=== PATIENT | female | born 1990 | race Hispanic/Latino ===

== ENCOUNTER 2025-01-03 22:04 | Inpatient (IN) | payer SELFPAY ==
[~2025-01-03] VITALS: Ht 160 cm; Wt 78.0 kg
[2025-01-03] MEDS: LACTATED RINGERS 1000ML 1,000 ML IV ONE (22:34)
[2025-01-03] MEDS: acetaMINOPHEN 500 MG TABLET PO ONE (22:35)
[2025-01-03 22:39] LABS: BASOPHILS # (AUTO) 0.05 K/uL (0.00-0.20); BASOPHILS % (AUTO) 0.3 % (0.0-5.0); EOSINOPHILS # (AUTO) 0.03 K/uL (0.00-0.70); EOSINOPHILS % (AUTO) 0.2 % (0.0-8.0); HEMATOCRIT 41.4 % (36-48); IMMATURE GRANULOCYTE ABSOLUTE 0.16 K/uL (0-1); LYMPHOCYTES # (AUTO) 1.4 K/uL (1.0-4.8); LYMPHOCYTES % (AUTO) 7.3 % (21.0-51.0); MEAN CORPUSCULAR HEMOGLOBIN 28.5 pg (27.0-33.0); MEAN CORPUSCULAR HGB CONC 34.5 g/dL (32.0-36.0); MEAN CORPUSCULAR VOLUME 82.5 fL (79-99); NEUTROPHILS # (AUTO) 16.8 K/uL (1.8-7.7); NEUTROPHILS % (AUTO) 86.4 % (40.0-77.0); PLATELET COUNT (AUTO) 163 K/uL (130-400); RED BLOOD CELL COUNT(AUTO) 5.02 MIL/uL (4.00-5.50); RED CELL DISTRIBUTION WIDTH 12.5 % (11.0-15.5); WHITE BLOOD COUNT (AUTO) 19.4 K/uL (4.8-10.8)
[2025-01-03 22:47] LABS: CREATININE 0.6 mg/dL (0.5-1.0); POTASSIUM 3.6 mmol/L (3.5-5.1)
[2025-01-03 22:52] LABS: INFLUENZA TYPE A Negative For Type A (NEGATIVE); INFLUENZA TYPE B Negative For Type B (NEGATIVE)
[2025-01-03 22:53] LABS: COVID19 (SARS ANTIGEN RAPID) PRESUMPTIVE NEGATIVE (NEGATIVE)
[2025-01-03] MEDS ORDERED: IOHEXOL 350 MG/ML 100ML INFUS..BTL IV ONE (23:04)
[2025-01-03 23:05] LABS: ADD UA MICROSCOPIC YES; APPEARANCE,URINE CLOUDY (CLEAR); BILIRUBIN,URINE NEGATIVE (NEGATIVE); COLOR,URINE LIGHT-YELLOW (YELLOW); GLUCOSE, URINE (UA) >=1000 mg/dL (NEGATIVE); KETONES,URINE 60 mg/dL (NEGATIVE); LEUKOCYTE ESTERASE ,URINE 500 Leu/uL (NEGATIVE); NITRATE,URINE 2+ (NEGATIVE); OCCULT BLOOD,URINE SMALL (NEGATIVE); PH,URINE 6.5 (5.0-8.0); PROTEIN,URINE 20 mg/dL (NEGATIVE); UROBILINOGEN,URINE 0.2 mg/dL (0.2-1.0)
[2025-01-03 23:07] LABS: BACTERIA,URINE FEW /HPF (None Seen); MUCUS,URINE RARE LPF (None Seen); SQUAMOUS EPITHELIAL CELL,UR RARE /HPF (0-2); WBC,URINE TNTC /HPF (0-1); YEAST,URINE BUDDING RARE /HPF (None Seen)
[2025-01-03 23:35] VITALS: TEMP 99.8
--- NOTE | 2025-01-03 23:48 | HMCIMG ---
CT ABDOMEN/PELVIS W/CONTRAST HISTORY: Lower abdominal pain COMPARISON: None TECHNIQUE: Multiple sequential axial images of the abdomen and pelvis were obtained from the dome of the diaphragm through symphysis pubis. Patient was given 100 cc of Omnipaque through intravenous route. Oral contrast was not given. FINDINGS: No pleural effusion is seen bilaterally. There is no evidence of parenchymal disease or pulmonary nodule of the visualized lower lungs. Degenerative changes of the thoracolumbar spine are present. The heart is not enlarged. Liver measures 22 cm. The liver, spleen, adrenal glands and pancreas are unremarkable. There is no evidence of hydronephrosis bilaterally. No evidence of renal stone is seen. Fecal material is seen in the colon. There are normal size retroperitoneal and mesenteric lymph nodes. No ascites is seen. No CT evidence of acute appendicitis is seen. There is right adnexal cystic structure measuring 3 cm may be related to ovarian cyst. Pelvic sidewalls are symmetric bilaterally. Bladder is well distended without wall thickening. IMPRESSION: 1. No acute findings. CT was performed with one or more following dose reduction techniques: automated exposure control, adjustment of the mA and kv according to patient's size, or use of a iterative reconstruction technique.
--- NOTE | 2025-01-03 23:48 | ERN ---
General Chief Complaint: Sepsis Stated Complaint: FEVER, CHILLS, POSSIBLE SEPSIS Time Seen by MD: 22:08 History of Present Illness Initial Comments 34-year-old female, history of diabetes, history of cholecystectomy, presents for lower abdominal pain and fever. She reports that she started with some lower abdominal pain beginning earlier in the day. She developed fever. EMS picked up the patient from home. She was found to have a heart rate in the 130s and a temperature of 102 F. She denies any vaginal bleeding or discharge. No vomiting. No cough or congestion. Allergies: Coded Allergies: No Known Allergies (Unverified Allergy, Unknown, 01/03/25) Past Medical History Past Medical History: Diabetes-Type II Past Surgical History: None ROS Dictation CONSTITUTIONAL: Fever generalized weakness HEAD/FACE: No signs of trauma. EENT: No eye pain, no blurred vision, no tearing, no double vision, no ear pain, no ear discharge, no nose pain, no nasal congestion, no throat pain, no throat swelling, no mouth pain. RESPIRATORY: No cough, no orthopnea, no SOB, no stridor, no wheezing. CARDIOVASCULAR: No chest pain, no edema, no palpitations, no syncope. GASTROINTESTINAL/ABDOMINAL: Lower abdominal pain GENITOURINARY: No abnormal discharge, no dysuria, no frequent urination, no hematuria. No complaints of pain in the genitals. MUSCULOSKELETAL: No back pain, no gout, no joint pain, no joint swelling, no muscle pain, no muscle stiffness, no neck pain. INTEGUMENTARY: No change in color, no change in hair/nails, no dryness, no lesion, no lumps, no rash. NEUROLOGICAL/PSYCH: No anxiety, not depressed, no emotional problem, no headache, no numbness, no pre-existing deficit, no history of seizures, no tremors, no weakness. HEMATOLOGIC/LYMPHATIC: Not anemic, no history of blood clots, no apparent bleeding, no bruising, glands not swollen. All Systems Negative, Except as Noted. Physical Exam Physical Exam Dictation VITAL SIGNS: Reviewed. GENERAL APPEARANCE: Alert, oriented x3, moderate distress HEAD AND FACE: Non-traumatic. EYES: PERRL, pink conjunctivas, eyelid no trauma, anterior chamber clear. EARS: Pinnas intact and no signs of trauma or erythema. Ear canals clear and no discharge. TMs no erythema. NOSE: No discharge, no bleeding. OROPHARYNX: Mouth normal, teeth no caries, tongue pink. Pharynx clear, no erythema. Tonsils no exudates, no abscesses noted. Mucous membrane moist. NECK: Supple, non-tender, no thyromegaly, no masses, no JVD, no bruits. BREAST: Deferred. CHEST: No tenderness, no crepitus, no paradoxical movement, no retractions. LUNGS: Clear, well-ventilated, symmetric, no rales, no wheezing, no rhonchi, no stridor, good breath sounds bilaterally. HEART: Regular rate, regular rhythm, no murmur, no gallops. VASCULAR: No peripheral edema. ABDOMEN: Soft, positive bowel sounds, nondistended, no guarding, no rebound, no masses no hepatomegaly, no splenomegaly, no Porter's sign, no hernias. Lower abdominal tenderness RECTAL: Deferred. GENITAL: Deferred. NEUROLOGICAL: Normal speech, gross motor function intact, gross sensory function intact. MUSCULOSKELETAL: Neck nontender, full range of motion, back nontender, full range of motion. EXTREMITIES: Nontender, full range of motion. SKIN: Color pink, dry, no turgor, no rash, no lacerations, no abrasions, no contusions. LYMPHATICS: Deferred. Results Laboratory and Microbiology Lab and Micro Result [facility]: Lower abdominal pain, fevers Historian: Patient Comorbidities: Uncontrolled diabetes, obesity Limitations by social determinants of health: Uninsured, I did factor this into my decision making. Differential diagnosis: UTI, SIRS, sepsis, surgical pathology, torsion, other. Vital signs: Initially febrile 101.5, pulse 124, blood pressure stable. Vital signs improved in the ER with treatment. Labs (independently ordered and interpreted by me): Leukocytosis 19 K, left shift 86% neutrophils. No anemia. Chemistry shows mild dehydration, stable electrolytes, glucose 320, lactic acid normal, CK, troponin normal. HCG is negative. Urinalysis consistent with infection, elevated specific gravity, glucose, occult blood, 2+ nitrites and leuk esterase too numerous to count WBCs. Flu SARS negative CT abdomen and pelvis with contrast (independently ordered and interpreted by me): No surgical pathology or major abnormalities noted. Pelvis ultrasound (independently interpreted by me): No signs of torsion. Treatment in ED: 2L LR, patient given fluids on ideal body weight, 30 cc/kg. IV Toradol for pain and fever. P.o. Tylenol. IV Rocephin. Patient did trigger sepsis. On sepsis focused re-evaluation after the fluids and antibiotics the patient has stable perfusion, cap refill less than 2 seconds, stable vital signs. Consultation: Hospitalist for admission. ED Course DX & DISP Disposition: Inpatient Departure Impression: Primary Impression: Sepsis Additional Impressions: UTI (urinary tract infection), Dehydration, Hyperglycemia Critical Time: 30 minutes (Critical Care Procedure NoteAuthorized and Performed by: meTotal critical care time: Approximately 36 minutesDue to a high probability of clinically significant, life threatening deterioration, the patient required my highest level of preparedness to intervene emergently and I personally spent this critical care time directly and personally managing the patient. This critical care time included obtaining a history; examining the patient; pulse oximetry; ordering and review of studies; arranging urgent treatment with development of a management plan; evaluation of patient's response to treatment; frequent reassessment; and, discussions with other providers.This critical care time was performed to assess and manage the high probability of imminent, life-threatening deterioration that could result in multi-organ failure. It was exclusive of separately billable procedures and treating other patients and teaching time.Please see MDM section and the rest of the note for further information on patient assessment and treatment.) Condition: Stable Referrals: SELF,REFERRAL (PCP) OWEN PENA DO Jan 03, 2025 23:48
[2025-01-04] VITALS (7 sets, daily range): BP systolic 98–121; BP diastolic 52–72; PULSE 61–116; RESP 18–19; TEMP 97.8–98.4; O2SAT 99
[2025-01-04] MEDS: cefTRIAXone 1G VIAL IVPB ONE (00:03)
[2025-01-04] MEDS: ketOROlac 15MG/ML VIAL (15MG/ML) IV ONE (00:03)
[2025-01-04] MEDS: LACTATED RINGERS 1000ML 1,000 ML IV ONE (00:03)
--- NOTE | 2025-01-04 01:08 | NUR ---
REPORT GIVEN TO TELMA MARTINEZ ALL QUESTIONS ANSWERED AT THIS TIME. NURSE EXPECTING PT ARRIVAL TO THE UNIT
--- NOTE | 2025-01-04 01:20 | HP ---
[facility] HISTORY AND PHYSICAL Date of Service: Jan 04, 2025 Time of Service: 01:20 Attending/supervising physicians: Dr. Tapia and Dr. Weber HISTORY OF PRESENT ILLNESS: Ms. New is a 34-year-old female, history of diabetes who presented to [facility] ED vi a EMS for evaluation of lower abdominal pain and fever onset 01/03/2025. EMS reported that the patient was found to have a heart rate in the 130s and a temperature of 102 F. the patient denied any vaginal bleeding or discharge, vomiting, cough, congestion. ED provider reports that patient triggered sepsis alert with a fever 101.5 F, heart rate 124 bpm, WBCs 19.4. UA was positive for leuk EST and nitrites. In ED the patient received Tylenol, LR2 L bolus, [id number] mg IV, and Rocephin1 g. ED physician request patient be admitted with the diagnosis of sepsis, UTI, dehydration, hyperglycemia. I assessed the patient at bedside in the ED 9. The patient was crying, appeared in no distress breathing was even, unlabored, in no distress. Patient reports she was crying because she has had sepsis in the past and is afraid. I informed the patient of labs, diagnostics, and plan of care. She verbalized understanding and is in agreement with the plan. Plan and assessment are listed below. REVIEW OF SYSTEMS 12-point ROS reviewed with patient. All pertinent positives mentioned above. Otherwise negative, noncontributory, non-pertinent. PAST MEDICAL HISTORY: As mentioned above PAST SURGICAL HISTORY: Cholecystectomy PAST SOCIAL HISTORY: Patient denies alcohol, tobacco, illicit drug use FAMILY HISTORY: Noncontributory Coded Allergies: No Known Allergies (Unverified Allergy, Unknown, 01/03/25) PHYSICAL EXAM GENERAL APPEARANCE: The patient is awake, alert, and oriented, in no acute cardiopulmonary distress. NEUROLOGICAL: Cranial nerves II-XII grossly intact. Motor is 5/5 in bilateral upper and lower extremities proximal to distal. No sensory deficits. HEENT: Face is symmetric. Pupils are equal and reactive. Extraocular movements are intact. NECK: Supple. No JVD. No thyromegaly. No submental, submandibular, pre- /postauricular, occipital or supraclavicular lymphadenopathy. CHEST: Normal chest expansion. No Telemetry. LUNGS: Absence of any rales, rhonchi or any wheezing. CARDIOVASCULAR: Regular. S1 and S2 normal. No appreciable rubs, murmurs or gallops. ABDOMEN: Soft, nontender, and nondistended. There is no rebound, voluntary guarding, or rigidity. : Deferred. No Zafar. EXTREMITIES: Non-edematous and not cyanotic. No clubbing. Good capillary refill. SKIN: No skin breakdown. Vital Sign (Last 24 Hours) 01/04/25 00:22 Temp 99.1 Pulse 107 Resp 17 B/P (MAP) 103/63 Pulse Ox 97 O2 Delivery Room Air* O2 Flow Rate 0 FiO2 21 LABS: Laboratory: Test 01/03/25 22:23 01/03/25 22:22 01/03/25 22:20 Range/Units Influenza Type A Antigen Negative For Type A NEGATIVE Influenza Type B Antigen Negative For Type B NEGATIVE SARS-CoV-2 Antigen (Rapid) PRESUMPTIVE NEGATIVE NEGATIVE White Blood Count 19.4 H 4.8-10.8 K/uL Red Blood Count 5.02 4.00-5.50 MIL/uL Hemoglobin 14.3 12.0-16.0 g/dL Hematocrit 41.4 36-48 % Mean Corpuscular Volume 82.5 79-99 fL Mean Corpuscular Hemoglobin 28.5 27.0-33.0 pg Mean Corpuscular Hemoglobin Concent 34.5 32.0-36.0 g/dL Red Cell Distribution Width 12.5 11.0-15.5 % Platelet Count 163 130-400 K/uL Mean Platelet Volume 10.2 7.5-10.5 fL Immature Granulocyte % (Auto) 0.8 0-1 % Neutrophils (%) (Auto) 86.4 H 40.0-77.0 % Lymphocytes (%) (Auto) 7.3 L 21.0-51.0 % Monocytes (%) (Auto) 5.0 3.0-13.0 % Eosinophils (%) (Auto) 0.2 0.0-8.0 % Basophils (%) (Auto) 0.3 0.0-5.0 % Neutrophils # (Auto) 16.8 H 1.8-7.7 K/uL Lymphocytes # (Auto) 1.4 1.0-4.8 K/uL Monocytes # (Auto) 1.0 0.1-1.0 K/uL Eosinophils # (Auto) 0.03 0.00-0.70 K/uL Basophils # (Auto) 0.05 0.00-0.20 K/uL Absolute Immature Granulocyte (auto 0.16 0-1 K/uL Nucleated Red Blood Cells 0.0 0.0-0.19 % White Cell Morphology Comment See comments Sodium Level 131 L 136-145 mmol/L Potassium Level 3.6 3.5-5.1 mmol/L Chloride Level 98 L 101-111 mmol/L Carbon Dioxide Level 24 21-32 mmol/L Blood Urea Nitrogen 10 7-18 mg/dL Creatinine 0.6 0.5-1.0 mg/dL Glomerular Filtration Rate Calc 122 >90 mL/min Random Glucose 320 H 70-105 mg/dL Lactic Acid Level 1.6 0.8-2.5 mmol/L Total Calcium 8.5 8.5-10.1 mg/dL Total Creatine Kinase 31 21-232 U/L Troponin I High Sensitivity < 4 L 4-50 ng/L Serum Test, Qualitative NEGATIVE NEGATIVE Urine Color LIGHT-YELLOW YELLOW Urine Appearance CLOUDY H CLEAR Urine pH 6.5 5.0-8.0 Urine Specific [place] 1.036 H 1.001-1.031 Urine Protein 20 H NEGATIVE mg/dL Urine Glucose (UA) >=1000 H NEGATIVE mg/dL Urine Ketones 60 H NEGATIVE mg/dL Urine Occult Blood SMALL H NEGATIVE Urine Nitrate 2+ H NEGATIVE Urine Bilirubin NEGATIVE NEGATIVE mg/dL Urine Urobilinogen 0.2 0.2-1.0 mg/dL Urine Leukocyte Esterase 500 H NEGATIVE Chance/uL Urine RBC 11-25 H 0-1 /HPF Urine WBC TNTC H 0-1 /HPF Urine Squamous Epithelial Cells RARE 0-2 /HPF Urine Bacteria FEW None Seen /HPF Urine Yeast RARE None Seen /HPF DIAGNOSTICS / RADIOLOGY: [ ] ASSESSMENT: Acute complicated cystitis, POA Sepsis 2/2 above, without septic shock Acute febrile illness Leukocytosis Electrolyte derangement (hyponatremia, hypochloremia) Diabetes mellitus with hyperglycemia PLAN: -Admit patient to medical floor. -Rocephin 2 g IV daily. -Follow urine and blood cultures. Antibiotic tailored to cultures. -NS at 100 mL an hour (ED administered LR 2 L bolus) -PRN medications for: Pain management, fever, hypertension, N/V, constipation. -Glucometer checks AC & HS needed with insulin regular sliding scale coverage as needed. -Blood pressure checks every 4 hours and as needed. -Reconcile home medications once available. - Monitor renal and liver function. -Monitor electrolytes and treat accordingly PRN -AM labs. -GI and DVT prophylaxis -Further plan/orders per hospitalization course. ADVANCED CARE PLANNING 1. Which of the following were discussed? Hospice Care - No Therapeutic options - Yes Advance Directives - Yes Other discussions - 2. Discussed with who? The patient 3. Voluntary nature of this service was explained to the patient? Yes 4. Amount of time spent - __ Over 40 minutes 5. Reviewed by Physician? (if this service was performed by JIMBO) Yes ATTESTATION BY PHYSICIAN I have seen and examined the patient. I reviewed the documentation, medical decision making, and treatment plan as noted by the mid-level provider above. I agree with the findings and plan of care. GAURAV GOTTI [facility] Jan 04, 2025 01:20
[2025-01-04] MEDS ORDERED: TEMAZepam 15 MG CAPSULE PO PRN (01:30)
[2025-01-04] MEDS ORDERED: acetaMINOPHEN 650 MG SUPPOSITORY RC PRN (01:30)
[2025-01-04] MEDS ORDERED: ondanSETRON 4MG INJ IVP PRN (01:30)
[2025-01-04] MEDS ORDERED: doCUSate SODIUM 100 MG CAP PO PRN (01:30)
[2025-01-04] MEDS ORDERED: LACTULOSE 20 GM/30 ML UDCUP PO PRN (01:30)
[2025-01-04] MEDS ORDERED: LAbetaLOL 20MG SYG IV PRN (01:30)
[2025-01-04] MEDS: 0.9%NACL 1000ML 1,000 ML IV SCH (01:41)
[2025-01-04] MEDS: INSULIN humuLIN R 100 UNIT/ML 3ML SQ SCH (06:16)
--- NOTE | 2025-01-04 12:07 | NUR ---
DCP: HOME Pt currently lives alone with her 3 kids. Pt receives $500 a month in SNAP benefits. Pt does not have DME, home health, or provider services. Pt is able to complete ADLs independently. Pt does not currently have a PCP. She states that in March she moved to the [facility] from [place] and is just starting to look for providers. SW left her [facility]. At [place] pt will go home and family can assist with transportation. Addendum: 01/04/25 at 1210 by NIKHIL CLAY SS Amended: Links added.
--- NOTE | 2025-01-04 13:49 | PN ---
[facility] PROGRESS NOTE Date of Service: Jan 04, 2025 Time of Service: 13:[address] Tapia SUBJECTIVE: [ 01/03 Ms. New is a 34-year-old female, history of diabetes who presented to [facility] ED via EMS for evaluation of lower abdominal pain and fever onset 01/03/2025. EMS reported that the patient was found to have a heart rate in the 130s and a temperature of 102 F. the patient denied any vaginal bleeding or discharge, vomiting, cough, congestion. ED provider reports that patient triggered sepsis alert with a fever 101.5 F, heart rate 124 bpm, WBCs 19.4. UA was positive for leuk EST and nitrites. In ED the patient received Tylenol, LR2 L bolus, [id number] mg IV, and Rocephin1 g. ED physician request patient be admitted with the diagnosis of sepsis, UTI, dehydration, hyperglycemia. I assessed the patient at bedside in the ED 9. The patient was crying, appeared in no distress breathing was even, unlabored, in no distress. Patient reports she was crying because she has had sepsis in the past and is afraid. I informed the patient of labs, diagnostics, and plan of care. She verbalized understanding and is in agreement with the plan. Plan and assessment are listed below. 01/04 patient was seen by nurse practitioner and physician during rounding in room 428. WBCs 19.40. UA was positive for leukocytosis. Urine culture is pending. Continue Rocephin. WBC 19.4. CT abdomen/pelvis was negative. Pelvis ultrasound pending. We will start patient on glargine 15 units b.i.d. for elevated blood sugars. We will continue to monitor patient in the meantime. A.m. labs] REVIEW OF SYSTEMS 12-point ROS reviewed with patient. All pertinent positives mentioned above. Otherwise negative, noncontributory, non-pertinent. PHYSICAL EXAM GENERAL APPEARANCE: The patient is awake, alert, and oriented, in no acute cardiopulmonary distress. NEUROLOGICAL: Cranial nerves II-XII grossly intact. Motor is 5/5 in bilateral upper and lower extremities proximal to distal. No sensory deficits. HEENT: Face is symmetric. Pupils are equal and reactive. Extraocular movements are intact. NECK: Supple. No JVD. No thyromegaly. No submental, submandibular, pre- /postauricular, occipital or supraclavicular lymphadenopathy. CHEST: Normal chest expansion. No Telemetry. LUNGS: Absence of any rales, rhonchi or any wheezing. CARDIOVASCULAR: Regular. S1 and S2 normal. No appreciable rubs, murmurs or ga llops. ABDOMEN: Soft, nontender, and nondistended. There is no rebound, voluntary guarding, or rigidity. : Deferred. No Zafar. EXTREMITIES: Non-edematous and not cyanotic. No clubbing. Good capillary refill. SKIN: No skin breakdown. Vital Signs (last 8hr) Date Time Temp Pulse Resp B/P (MAP) Pulse Ox O2 Delivery O2 Flow Rate FiO2 01/04/25 12:00 98.1 84 18 109/67 97 Room Air 01/04/25 11:32 Room Air* 0 21 01/04/25 07:59 98.2 61 19 106/72 100 Room Air LABS: Laboratory: Test 01/04/25 11:13 01/03/25 22:23 01/03/25 22:22 01/03/25 22:20 Range/Units Whole Blood Glucose 291 H 70-110 MG/DL Influenza Type A Antigen Negative For Type A NEGATIVE Influenza Type B Antigen Negative For Type B NEGATIVE SARS-CoV-2 Antigen (Rapid) PRESUMPTIVE NEGATIVE NEGATIVE White Blood Count 19.4 H 4.8-10.8 K/uL Red Blood Count 5.02 4.00-5.50 MIL/uL Hemoglobin 14.3 12.0-16.0 g/dL Hematocrit 41.4 36-48 % Mean Corpuscular Volume 82.5 79-99 fL Mean Corpuscular Hemoglobin 28.5 27.0-33.0 pg Mean Corpuscular Hemoglobin Concent 34.5 32.0-36.0 g/dL Red Cell Distribution Width 12.5 11.0-15.5 % Platelet Count 163 130-400 K/uL Mean Platelet Volume 10.2 7.5-10.5 fL Immature Granulocyte % (Auto) 0.8 0-1 % Neutrophils (%) (Auto) 86.4 H 40.0-77.0 % Lymphocytes (%) (Auto) 7.3 L 21.0-51.0 % Monocytes (%) (Auto) 5.0 3.0-13.0 % Eosinophils (%) (Auto) 0.2 0.0-8.0 % Basophils (%) (Auto) 0.3 0.0-5.0 % Neutrophils # (Auto) 16.8 H 1.8-7.7 K/uL Lymphocytes # (Auto) 1.4 1.0-4.8 K/uL Monocytes # (Auto) 1.0 0.1-1.0 K/uL Eosinophils # (Auto) 0.03 0.00-0.70 K/uL Basophils # (Auto) 0.05 0.00-0.20 K/uL Absolute Immature Granulocyte (auto 0.16 0-1 K/uL Nucleated Red Blood Cells 0.0 0.0-0.19 % White Cell Morphology Comment See comments Sodium Level 131 L 136-145 mmol/L Potassium Level 3.6 3.5-5.1 mmol/L Chloride Level 98 L 101-111 mmol/L Carbon Dioxide Level 24 21-32 mmol/L Blood Urea Nitrogen 10 7-18 mg/dL Creatinine 0.6 0.5-1.0 mg/dL Glomerular Filtration Rate Calc 122 >90 mL/min Random Glucose 320 H 70-105 mg/dL Lactic Acid Level 1.6 0.8-2.5 mmol/L Total Calcium 8.5 8.5-10.1 mg/dL Total Creatine Kinase 31 21-232 U/L Troponin I High Sensitivity < 4 L 4-50 ng/L Serum Test, Qualitative NEGATIVE NEGATIVE Urine Color LIGHT-YELLOW YELLOW Urine Appearance CLOUDY H CLEAR Urine pH 6.5 5.0-8.0 Urine Specific [place] 1.036 H 1.001-1.031 Urine Protein 20 H NEGATIVE mg/dL Urine Glucose (UA) >=1000 H NEGATIVE mg/dL Urine Ketones 60 H NEGATIVE mg/dL Urine Occult Blood SMALL H NEGATIVE Urine Nitrate 2+ H NEGATIVE Urine Bilirubin NEGATIVE NEGATIVE mg/dL Urine Urobilinogen 0.2 0.2-1.0 mg/dL Urine Leukocyte Esterase 500 H NEGATIVE Chance/uL Urine RBC 11-25 H 0-1 /HPF Urine WBC TNTC H 0-1 /HPF Urine Squamous Epithelial Cells RARE 0-2 /HPF Urine Bacteria FEW None Seen /HPF Urine Yeast RARE None Seen /HPF Current Medications Medications (Trade) Dose Ordered Sig/Rosalie Route PRN Reason Start Time Stop Time Status Last Admin Dose Admin Acetaminophen (TYLenol 325MG TAB) 650 mg Q6H PRN PO FEVER/MILD PAIN LEVEL 1-3 01/04/25 01:30 02/03/25 01:29 Acetaminophen (TYLenol 650MG SUPPOSITORY) 650 mg Q6H PRN RC FEVER / MILD PAIN 1-3 IF NPO 01/04/25 01:30 02/03/25 01:29 Ceftriaxone Sodium (Rocephin 2gm Inj) 2 gm Q24H IVPB 01/04/25 23:30 01/14/25 23:29 Docusate Sodium (COLace 100MG CAP) 100 mg BID PRN PO c 01/04/25 01:30 02/03/25 01:29 Insulin Human Regular (humuLIN R 100 UNIT/ML 3ML) INSULIN SLIDING SCAL... ACHS SQ 01/04/25 07:30 02/03/25 07:29 01/04/25 11:40 12 UNIT Labetalol HCl (TRANdate 20MG SYG) 10 mg Q2H PRN IV SBP GREATER THAN 160 01/04/25 01:30 02/03/25 01:29 Lactulose (Constulose 20gm/ 30ml Udcup) 20 gm Q6H PRN PO CONSTIPATION 01/04/25 01:30 02/03/25 01:29 Ondansetron HCl (zoFRAN 4MG INJ) 4 mg Q6H PRN IVP NAUSEA/VOMITING 01/04/25 01:30 02/03/25 01:29 Sodium Chloride 1,000 ml @ 100 mls/hr Q10H IV 01/04/25 01:30 02/03/25 01:29 01/04/25 01:41 100 MLS/HR Temazepam (restORIL 15 MG CAP) 15 mg HS PRN PO INSOMNIA/SLEEP 01/04/25 01:30 02/03/25 01:29 DIAGNOSTICS / RADIOLOGY: [ ] ASSESSMENT: Acute complicated cystitis, POA Sepsis 2/2 above, without septic shock Acute febrile illness Leukocytosis Electrolyte derangement (hyponatremia, hypochloremia) Diabetes mellitus with hyperglycemia PLAN: Continue medical-surgical floor -Rocephin 2 g IV daily. Urine culture pending Blood culture pending -NS at 100 mL an hour (ED administered LR 2 L bolus) -PRN medications for: Pain management, fever, hypertension, N/V, constipation. -Glucometer checks AC & HS needed with insulin regular sliding scale coverage as needed. -Blood pressure checks every 4 hours and as needed. -Reconcile home medications once available. - Monitor renal and liver function. -Monitor electrolytes and treat accordingly PRN -AM labs. -GI and DVT prophylaxis -Further plan/orders per hospitalization course. CT abdomen pelvis negative Pelvis ultrasound pending Influenza A negative Influenza B negative COVID negative Start patient on glargine 15 units b.i.d. ATTESTATION BY PHYSICIAN I have seen and examined the patient. I reviewed the documentation, medical decision making, and treatment plan as noted by the mid-level provider above. I agree with the findings and plan of care. ELVIRA Wilde MD [employer] Jan 04, 2025 13:49
--- NOTE | 2025-01-04 14:01 | HMCIMG ---
US PELVIC NON-OB LIMITED HISTORY: Torsion COMPARISON: None TECHNIQUE: Transabdominal pelvic ultrasound study was performed. FINDINGS: The uterus measures 10.1 x 4.5 x 5.7 cm. The right ovary measures 4.4 x 2.8 x 4.7 cm. The left ovary measures 2.8 x 2.1 x 2.7 cm. Flow is seen in both ovaries. There are bilateral ovarian cysts with the largest on the right measuring 4.1 x 3.1 cm. Endometrial thickness is 9 mm. The study is limited due to overlying bowel gas. No free fluid is seen in the cul-de-sac. IMPRESSION: 1. Right ovarian cystic structure measuring 4.1 x 3.1 cm related to ovarian cyst. No adnexal mass is seen otherwise.
[2025-01-04] MEDS: INSULIN GLARgine 100 UNITS/ML 10 ML VIAL SQ SCH (20:13)
[2025-01-04] MEDS: cefTRIAXone 2GM VIAL IVPB SCH (23:21)
[2025-01-04] MEDS: acetaMINOPHEN 325 MG TAB PO PRN (23:44)
[2025-01-05] VITALS: BP 109/70; PULSE 103; RESP 20; TEMP 99.6
[2025-01-05 04:00] VITALS: BP 100/59; PULSE 79; RESP 18; TEMP 98
[2025-01-05 04:34] LABS: BASOPHILS # (AUTO) 0.04 K/uL (0.00-0.20); BASOPHILS % (AUTO) 0.4 % (0.0-5.0); EOSINOPHILS # (AUTO) 0.12 K/uL (0.00-0.70); EOSINOPHILS % (AUTO) 1.1 % (0.0-8.0); HEMATOCRIT 36.3 % (36-48); IMMATURE GRANULOCYTE ABSOLUTE 0.08 K/uL (0-1); LYMPHOCYTES # (AUTO) 2.2 K/uL (1.0-4.8); LYMPHOCYTES % (AUTO) 20.3 % (21.0-51.0); MEAN CORPUSCULAR HEMOGLOBIN 28.4 pg (27.0-33.0); MEAN CORPUSCULAR HGB CONC 33.6 g/dL (32.0-36.0); MEAN CORPUSCULAR VOLUME 84.4 fL (79-99); MONOCYTES % (AUTO) 9.4 % (3.0-13.0); NEUTROPHILS # (AUTO) 7.5 K/uL (1.8-7.7); NEUTROPHILS % (AUTO) 68.1 % (40.0-77.0); PLATELET COUNT (AUTO) 134 K/uL (130-400); RED CELL DISTRIBUTION WIDTH 12.6 % (11.0-15.5)
[2025-01-05 04:51] LABS: ALBUMIN 2.4 g/dL (3.5-5.0); BILIRUBIN,DIRECT 0.1 mg/dL (0.0-0.3); BILIRUBIN,TOTAL 0.5 mg/dL (0.2-1.0); CREATININE 0.7 mg/dL (0.5-1.0); HEMOGLOBIN A1C 12.3 % (4.0-6.0); MAGNESIUM 1.6 mg/dL (1.80-2.40); PHOSPHORUS 3.1 mg/dL (2.5-4.9); POTASSIUM 3.7 mmol/L (3.5-5.1); TOTAL PROTEIN, SERUM 6.6 g/dL (6.0-8.3)
[2025-01-05 08:00] VITALS: BP 98/62; PULSE 83; RESP 20; TEMP 98.6
[2025-01-05] MEDS: PoTASSium chloRIDE 20MEQ ER 20 MEQ ERTAB PO ONE (11:19)
[2025-01-05] MEDS: MAGNESIUM 2GM PREMIX 50ML 50 ML IV SCH (11:20)
[2025-01-05 12:00] VITALS: BP 101/65; PULSE 91; RESP 18; TEMP 98.1
[2025-01-05] MEDS ORDERED: HUM100IN SQ ×2 (13:27→17:24)
[2025-01-05] MEDS ORDERED: INSU100I45 SQ ×2 (13:29→17:24)
[2025-01-05 16:00] VITALS: BP 105/66; PULSE 99; RESP 18; TEMP 98.3
[2025-01-05] MEDS ORDERED: CEPH500B PO (17:24)
--- NOTE | 2025-01-05 17:51 | DS ---
Discharge Summary Hospital Course Summary: DATE OF ADMISSION:[01/03/25] DATE OF DISCHARGE:[01/03/25] DISPOSITION:[Home] CONDITION:[Medically stable] CONSULTANTS:[None] FOLLOW UP APPOINTMENTS:[PCP 2 to 3 days.] PROCEDURES:[None] IMAGING: report attached to summary MICROBIOLOGY: report attached to summary ACTIVITY:[Independent] HOME MEDICATIONS: see [facility] NEW MEDICATIONS:[Keflex x7 days] EMERGENCY INSTRUCTIONS: The patient was instructed to present to the nearest Emergency departmentr or call 911 once their symptoms will return or worsen Managed Care Liaison(s): Patient is 34 years old female who came to emergency department with a complaint of lower abdominal pain and fever. Via EMS patient was found to have a heart rate 130s and temperature of 102. Patient was diagnosed with sepsis on admission. Urinalysis was positive for leukocytosis and urine culture came back positive for E coli. Blood culture negative. CT abdomen/pelvis was negative. Pelvis ultrasound showed right ovarian cyst measuring 4.1 x 3.1. Patient was recommended to follow up with OBGYN outpatient. Patient's A1c was 12.3 and as per patient she has not had any insulin at home and that is while she was not able to inject herself with the medicine. Today WBC is 11. Patient is cleared to be discharged home and follow-up outpatient with the PCP in 2 to 3 days. Patient will be sent home on Keflex x7 days. Also all the insulin that patient had at home were sent to patient's pharmacy. Follow-up with OBGYN within 1 to 2 weeks. Procedure(s): REVIEW OF SYSTEMS 12-point ROS reviewed with patient. All pertinent positives mentioned above. Otherwise negative, noncontributory, non-pertinent. PHYSICAL EXAM GENERAL APPEARANCE: The patient is awake, alert, and oriented, in no acute cardiopulmonary distress. NEUROLOGICAL: Cranial nerves II-XII grossly intact. Motor is 5/5 in bilateral upper and lower extremities proximal to distal. No sensory deficits. HEENT: Face is symmetric. Pupils are equal and reactive. Extraocular movements are intact. NECK: Supple. No JVD. No thyromegaly. No submental, submandibular, pre- /postauricular, occipital or supraclavicular lymphadenopathy. CHEST: Normal chest expansion. No Telemetry. LUNGS: Absence of any rales, rhonchi or any wheezing. CARDIOVASCULAR: Regular. S1 and S2 normal. No appreciable rubs, murmurs or gallops. ABDOMEN: Soft, nontender, and nondistended. There is no rebound, voluntary guarding, or rigidity. : Deferred. No Zafar. EXTREMITIES: Non-edematous and not cyanotic. No clubbing. Good capillary refill. SKIN: No skin breakdown. Assessment/Plan: ASSESSMENT: Acute complicated cystitis, POA Sepsis 2/2 above, without septic shock Acute febrile illness Leukocytosis Electrolyte derangement (hyponatremia, hypochloremia) Diabetes mellitus with hyperglycemia Home Medications: Reported Medications Insulin NPH Human Isophane (Novolin N Flexpen) 100 Unit/Ml (3 Ml) Insuln.pen, 12 UNIT SQ AM, SYRINGE 01/05/25 Hum Insulin NPH/Reg Insulin Hm (Humulin 70/30 Kwikpen) 100 Unit/Ml (70-30) Insuln.pen, 15 UNITS SQ BID, SYRINGE 01/05/25 Time spent arranging discharge: 31-60 minutes ATTESTATION BY PHYSICIAN I have seen and examined the patient. I reviewed the documentation, medical decision making, and treatment plan as noted by the mid-level provider above. I agree with the findings and plan of care. ELVIRA Wilde MD SHUTDOWN PLANNER Jan 05, 2025 17:51
--- NOTE | 2025-01-05 18:35 | NUR ---
DISCHARGE PT sitting in bed w/ eyes open 0 s/s of distress noted A&Ox4 able to make needs known. Discharge instructions given verbally and written PT verbally acknowledged understanding w/ 0 questions or concerns. IV removed intact w/o complications. 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
== END 2025-01-05 18:15 | disposition home or self-care (01) | DRG 872 ==
LOC: EDH 22:04 → EDHIP 22:05 → 4DH 01-04 01:11
PROVIDERS: ADMIT Internal Medicine; ATTEND Internal Medicine
DX: A41.9 Sepsis, unspecified organism (principal); E87.1 Hypo-osmolality and hyponatremia; N30.00 Acute cystitis without hematuria; E86.0 Dehydration; E11.65 Type 2 diabetes mellitus with hyperglycemia; E87.8 Other disorders of electrolyte and fluid balance, not elsewhere classified; I10 Essential (primary) hypertension; Z79.899 Other long term (current) drug therapy; Z90.49 Acquired absence of other specified parts of digestive tract
CPT/HCPCS: 36415; 74177; 76857; 80048; 80076; 81001; 82550; 82948; 83036; 83605; 83735; 84100; 84145; 84484; 84703; 85025; 87040; 87086; 87186; 87426; 87804; 96360; 99291; G0378; J0696; J1815; J1885; J3475; Q9967